=== PATIENT | female | born 1995 | race Caucasian/White ===

== ENCOUNTER 2019-03-05 12:43 | Outpatient (CLI) | payer BC ==
--- NOTE | 2019-03-05 14:18 | ULT ---
Ultrasound thyroid: 03/05/2019 HISTORY: Nontoxic single thyroid nodule on the left. COMPARISON: None available FINDINGS: Isthmus: 0.3 cm AP Right lobe: 4.5 x 1.3 x 1.8 cm Left lobe: 5.1 x 1.7 x 2.4 cm Thyroid parenchymal echotexture is diffusely heterogeneous. At the lower pole of the right lobe, there is a tiny 0.3 cm focal hyperechoic lesion. Composition: Solid: 2 points Echogenicity: Hyperechoic: 1. Point Shape: Wider than tall: 0 point Margin: Smooth: 0 Point Echogenic foci: None: 0 point TIRADS category 3: Mildly suspicious. Because of small size, no follow-up and no fine needle aspiration biopsy recommended. Centered at the mid pole of the left lobe, there is a moderate sized 2.5 x 1.5 x 1.9 cm mass which is approximately three fourths solid and one fourth cystic. The solid component is hyperemic. Composition: Mixed solid and cystic: 1 Point Echogenicity: Isoechoic: 1 Point Shape: Balderas than tall: 0 Point Margin: Smooth: 0 Point Echogenic foci: None: 0 Point TIRADS category 2: Not suspicious No fine-needle aspiration or follow-up recommended. IMPRESSION: 1. A 2.5 cm solid and cystic nodule in the left lobe. 2. TIRADS category 2: Not suspicious. 3. No fine-needle aspiration biopsy and no follow-up recommended.
== END 2019-03-05 12:44 | disposition home or self-care (01) ==
LOC: ULT 12:43 → EDBD 13:00
PROVIDERS: ATTEND Obstetrics & Gynecology
DX: E04.1 Nontoxic single thyroid nodule (principal)
CPT/HCPCS: 76536